=== PATIENT | female | born 1925 | race Caucasian/White ===

== ENCOUNTER 2016-08-24 15:12 | Emergency (ER) | payer MEDICARE ==
[~2016-08-24] VITALS: Ht 172.7 cm; Wt 77.3 kg
[~2016-08-24 15:12] MED LIST: ASTELIN NASAL S34 ML NS; ATIVAN 1MG T1 MG/TAB PO; CALCIMAR200 IU/ML SQ; CALCIUM CARBONA1 TA8 PO; CALCIUM CITRAT950 MG PO; CIPRO 500MG TA500 MG PO; CLOPIDOGREL; COLACE 100100 MG/CAP PO; COMBIVENT INH14.7 GM IH; COREG 6.256.25 MG/TA PO; DESYREL 100MG100 MG PO; DESYREL 50MG50 MG PO; DETROL 2MG TAB2 MG PO; DITROPAN 5MG TAB5 MG PO; EFFEXOR100 MG PO; GABAPENTIN100 M1 PO; KLOR-CON 1010 MEQ PO; LASIX 40MG TABL40 MG PO; LEVOXYL0.112 MG PO; LIDODERM 5% PATC1 EA TP; LIPITOR 10MG10 MG PO; LIPITOR20 MG PO; LOTEMAX 5 ML 5 M5 ML OU; MAGNESIUM OXIDE; MULTIPLE VITAMI1 TA1 PO; MYCOSTATIN100000 U/G TP; MYRBETR50MG PO; NEXIUM40 MG PO; NITROSTAT0.4 MG SL; NITROSTAT0.4 MG/TAB SL; NORCO 325 MG-101 TAB PO; NORCO 325 MG-51 TAB PO; PAIN RELIEF TP; PERCOCET 325 MG1 TA2 PO; PLAVIX 75MG TAB75 MG PO; POTASSIUM '99'620 MG PO; POTASSIUM GLUCONATE; PREDNISONE10 MG PO; PROZAC 20MG20 MG PO; REQUIP 1MG T1 MG/TAB PO; REQUIP2 MG PO; STOOL SOFTENER100 M2 PO; SYNTHROID0.075 MG/T PO; TRIMPEX100 MG PO; TYLENOL 325MG325 MG PO; TYLENOL 500MG500 MG PO; VALERIAN ROOT; VICODIN PO; ZANTAC 300300 MG PO; [UNRECOGNIZED DRUG - OTHER]
[2016-08-24 15:14] VITALS: TEMP 98.2
[2016-08-24] MEDS ORDERED: PYRIDIUM 100MG100 MG PO (16:55)
[2016-08-24] MEDS ORDERED: COREG 6.256.25 MG/TA PO (16:56)
[2016-08-24] MEDS ORDERED: NAPROSYN 2250 MG/TAB PO (16:59)
[2016-08-24 17:09] LABS: BASO % 0.1 % (0.0-2.0); EOS % 0.1 % (0-4.0); GRAN # 6.8 (1.4-6.5); GRAN % 83.3 % (42.2-75.2); LYMPH # 0.7 (1.2-3.4); LYMPH % 8.4 % (20.0-51.0); MEAN CELL VOLUME 96 fl (80.0-100.0); MEAN CORPUSCULAR HGB CONC 33 g/dl (33.0-37.0); MEAN PLATELET VOLUME 9.3 fl (7.4-10.4); MONO # 0.6 (0.1-0.6); MONO % 7.9 % (1.7-9.3); PLATELET COUNT 222 K/mm3 (130-400); RED BLOOD COUNT 3.33 M/mm3 (4.10-5.30); REDCELL DISTRIBUTION WIDTH-CV 12.4 % (11.5-14.5); WHITE BLOOD COUNT 8.1 K/mm3 (4.8-10.8)
[2016-08-24 17:11] LABS: HEMOGLOBIN 10.5 g/dl (12.5-16.0); MEAN CORPUSCULAR HEMOGLOBIN 32 pg (27.0-31.0)
[2016-08-24 17:20] LABS: ACETAMINOPHEN < 10 ug/mL (10-30); ADJUSTED CALCIUM 9.6 mg/dL (8.4-10.2); ALANINE AMINOTRANSFERASE 24 U/L (9-52); ALBUMIN 3.8 gm/dL (3.5-5.0); ALKALINE PHOSPHATASE 145 U/L (50-136); ANION GAP 13 mmol/L (7-16); BILIRUBIN,TOTAL 0.7 mg/dL (0.0-1.0); BLOOD UREA NITROGEN 55 mg/dL (7-17); CALCIUM 9.4 mg/dL (8.4-10.2); CARBON DIOXIDE 27 mmol/L (22-30); CHLORIDE 99 mmol/L (98-107); CREATININE, serum 1.57 mg/dL (0.52-1.25); GLUCOSE 114 mg/dL (74-106); POTASSIUM 4.2 mmol/L (3.4-5.0); SODIUM 138 mmol/L (137-145); TOTAL PROTEIN 6.6 gm/dL (6.4-8.2)
[2016-08-24 18:23] VITALS: BP 126/62; PULSE 72
== END 2016-08-24 18:28 | disposition home or self-care (01) ==
LOC: COL.ER 15:12
PROVIDERS: Emergency Medicine
DX: T50.901A Poisoning by unspecified drugs, medicaments and biological substances, accidental (unintentional), initial encounter (principal); Y92.199 Unspecified place in other specified residential institution as the place of occurrence of the external cause; I10 Essential (primary) hypertension
CPT/HCPCS: J7030

== ENCOUNTER 2016-09-24 11:49 | Emergency (ER) | payer MEDICARE ==
[~2016-09-24] VITALS: Ht 170.2 cm; Wt 64.5 kg
[~2016-09-24 11:49] MED LIST changes: +NAPROSYN 2250 MG/TAB PO; +PYRIDIUM 100MG100 MG PO
[2016-09-24 11:55] VITALS: BP 139/70; PULSE 65; TEMP 98.1
[2016-09-24] MEDS ORDERED: LIDODERM 5% PATC1 EA TP (14:07)
== END 2016-09-24 14:38 | disposition home or self-care (01) ==
LOC: COL.ER 11:49
DX: M54.32 Sciatica, left side (principal); I25.10 Atherosclerotic heart disease of native coronary artery without angina pectoris; Z95.1 Presence of aortocoronary bypass graft; Z87.891 Personal history of nicotine dependence; F32.9 Major depressive disorder, single episode, unspecified; Z79.02 Long term (current) use of antithrombotics/antiplatelets
CPT/HCPCS: J2270; J2550; J3360

== ENCOUNTER 2016-10-31 17:33 | Emergency (ER) | payer MEDICARE ==
[~2016-10-31] VITALS: Ht 172.7 cm; Wt 81.8 kg
[2016-10-31 17:33] VITALS: TEMP 97.7
[2016-10-31 18:37] VITALS: BP 181/82; PULSE 75
[2016-10-31] MEDS ORDERED: PERCOCET 325 MG1 TA2 PO (18:38)
[2016-10-31] MEDS ORDERED: ULTRAM 50MG TAB50 MG PO (18:38)
== END 2016-10-31 19:24 | disposition home or self-care (01) ==
LOC: COL.ER 17:33
DX: M25.552 Pain in left hip (principal); R10.2 Pelvic and perineal pain; E03.9 Hypothyroidism, unspecified; I25.10 Atherosclerotic heart disease of native coronary artery without angina pectoris; Z95.1 Presence of aortocoronary bypass graft
CPT/HCPCS: J1170; J1885

== ENCOUNTER 2016-11-21 11:35 | Emergency (ER) | payer MEDICARE ==
[~2016-11-21] VITALS: Ht 157.5 cm; Wt 63.6 kg
[~2016-11-21 11:35] MED LIST changes: +ULTRAM 50MG TAB50 MG PO
[2016-11-21 11:40] VITALS: TEMP 97.8
[2016-11-21 14:37] VITALS: BP 142/78; PULSE 68
== END 2016-11-21 14:38 | disposition home or self-care (01) ==
LOC: COL.ER 11:35
DX: M25.552 Pain in left hip (principal); I10 Essential (primary) hypertension; F32.9 Major depressive disorder, single episode, unspecified; M19.90 Unspecified osteoarthritis, unspecified site; Z95.1 Presence of aortocoronary bypass graft; Z90.710 Acquired absence of both cervix and uterus; Z90.49 Acquired absence of other specified parts of digestive tract; Z90.89 Acquired absence of other organs; Z96.659 Presence of unspecified artificial knee joint; Z98.890 Other specified postprocedural states
CPT/HCPCS: J1170; J1885

== ENCOUNTER 2016-12-04 22:43 | Emergency (ER) | payer MEDICARE ==
[~2016-12-04] VITALS: Ht 152.4 cm; Wt 81.8 kg
[2016-12-04 22:45] VITALS: TEMP 98
[2016-12-05 00:27] VITALS: BP 101/49; PULSE 93
== END 2016-12-05 01:14 | disposition home or self-care (01) ==
LOC: COL.ER 22:43
DX: M25.552 Pain in left hip (principal); G89.29 Other chronic pain; M54.5 Low back pain; I10 Essential (primary) hypertension; Z48.01 Encounter for change or removal of surgical wound dressing
CPT/HCPCS: J1170; J1200; J1885; J2550

== ENCOUNTER → 2016-12-14 | Outpatient (CLI) | payer MEDICARE | LOC: BHSO 12:54 | DX: F06.32 Mood disorder due to known physiological condition with major depressive-like episode (principal) | CPT/HCPCS: 90791-AI ==

== ENCOUNTER → 2017-01-16 | Outpatient (CLI) | payer MEDICARE | LOC: BHSO 11:04 | DX: F06.32 Mood disorder due to known physiological condition with major depressive-like episode (principal) ==

== ENCOUNTER → 2017-04-10 | Outpatient (CLI) | payer MEDICARE | LOC: BHSO 10:45 | DX: F41.1 Generalized anxiety disorder (principal) ==

== ENCOUNTER 2017-06-07 19:44 | Emergency (ER) | payer MEDICARE ==
[~2017-06-07] VITALS: Ht 165.1 cm; Wt 77.3 kg
[2017-06-07 19:47] VITALS: BP 132/58; TEMP 98.3
[2017-06-07 22:03] VITALS: PULSE 75
== END 2017-06-07 22:11 | disposition home or self-care (01) ==
LOC: COL.ER 19:44
DX: M46.1 Sacroiliitis, not elsewhere classified (principal)
CPT/HCPCS: J1170

== ENCOUNTER 2017-09-07 06:56 | Inpatient (IN) | payer MEDICARE ==
[~2017-09-07] VITALS: Ht 170.2 cm; Wt 68.2 kg
[~2017-09-07 06:56] MED LIST changes: +ALEVE 220MG220 MG PO; +ASTELIN NASAL S34 ML; -ASTELIN NASAL S34 ML NS; +MYRBETR25MG PO; -MYRBETR50MG PO; -NAPROSYN 2250 MG/TAB PO; +ZANTAC 150MG T150 MG PO; -ZANTAC 300300 MG PO
[2017-09-07 07:45] LABS: BASO % 0.2 % (0.0-2.0); EOS # 0.2 (0.0-0.7); EOS % 2.9 % (0-4.0); GRAN # 6.5 (1.4-6.5); GRAN % 77.1 % (42.2-75.2); LYMPH # 0.9 (1.2-3.4); LYMPH % 11.1 % (20.0-51.0); MEAN CELL VOLUME 89 fl (80.0-100.0); MEAN CORPUSCULAR HGB CONC 32 g/dl (33.0-37.0); MEAN PLATELET VOLUME 8.7 fl (7.4-10.4); MONO # 0.7 (0.1-0.6); MONO % 8.1 % (1.7-9.3); PLATELET COUNT 372 K/mm3 (130-400); RED BLOOD COUNT 2.81 M/mm3 (4.10-5.30); REDCELL DISTRIBUTION WIDTH-CV 13.1 % (11.5-14.5)
[2017-09-07 07:48] LABS: HEMATOCRIT 25.1 % (37.0-47.0); HEMOGLOBIN 8.1 g/dl (12.5-16.0); MEAN CORPUSCULAR HEMOGLOBIN 29 pg (27.0-31.0)
[2017-09-07 07:58] LABS: INR 1.2 (0.8-3.0)
[2017-09-07 08:00] LABS: ALANINE AMINOTRANSFERASE 26 U/L (9-52); ALBUMIN 3.2 gm/dL (3.5-5.0); ALKALINE PHOSPHATASE 142 U/L (50-136); ANION GAP 12 mmol/L (7-16); AST,SGOT 22 U/L (15-37); BILIRUBIN,TOTAL 0.4 mg/dL (0.0-1.0); BLOOD UREA NITROGEN 24 mg/dL (7-17); CARBON DIOXIDE 24 mmol/L (22-30); CHLORIDE 101 mmol/L (98-107); GLUCOSE 102 mg/dL (74-106); LIPASE 29 U/L (23-300); POTASSIUM 3.9 mmol/L (3.4-5.0); SODIUM 138 mmol/L (137-145); TOTAL PROTEIN 6.5 gm/dL (6.4-8.2)
[2017-09-07 08:01] LABS: PARTIAL THROMBOPLASTIN TIME 31.4 SECONDS (26.0-37.0)
[2017-09-07 08:12] LABS: TROPONIN-I < 0.012 ng/mL (0.000-0.034)
[2017-09-07] MEDS ORDERED: NORCO 325 MG-51 TAB PO (09:53)
[2017-09-07 10:30] LABS: COLLECTION METHOD CLEAN CATCH
[2017-09-07] MEDS ORDERED: NORCO 325 MG-101 TAB PO (10:38)
[2017-09-07 10:41] LABS: PH 6 (5-8); SQUAMOUS EPITHELIAL 0-2 /hpf; URINE APPEARANCE Cloudy; URINE BACTERIA Rare /hpf; URINE BILIRUBIN Negative (NEGATIVE); URINE BLOOD 1+ (NEGATIVE); URINE COLOR Yellow; URINE GLUCOSE Negative (NEGATIVE); URINE KETONE Trace (NEGATIVE); URINE LEUKOCYTE ESTERASE 3+ (NEGATIVE); URINE NITRATE Negative (NEGATIVE); URINE PROTEIN(semi-quant) Negative (NEGATIVE); URINE UROBILINOGEN Negative (NEGATIVE)
[2017-09-07] MEDS ORDERED: CYMBALTA 30MG30 MG PO (10:44)
[2017-09-07] MEDS ORDERED: CYMBALTA 60MG60 MG PO (10:44)
[2017-09-07] MEDS ORDERED: FLONASEALLERGY NS (10:50)
[2017-09-07] MEDS ORDERED: OXY IR5 MG PO (10:51)
[2017-09-07] MEDS ORDERED: ESTRACE0.1 MG/GM VG (10:55)
[2017-09-07] MEDS ORDERED: TYLENOL 500MG500 MG PO (11:02)
[2017-09-07] MEDS ORDERED: PROTONIX 40MG T40 MG PO (12:19)
[2017-09-07 12:45] VITALS: BP 153/66; PULSE 81
[2017-09-07 13:00] VITALS: BP 155/56; PULSE 83
[2017-09-07 15:13] LABS: HEMATOCRIT 26.6 % (37.0-47.0); HEMOGLOBIN 8.5 g/dl (12.5-16.0)
[2017-09-07 19:37] LABS: HEMATOCRIT 25.2 % (37.0-47.0)
[2017-09-07 20:00] VITALS: BP 132/71; PULSE 90; TEMP 97.7
[2017-09-08] VITALS (7 sets, daily range): BP systolic 123–176; BP diastolic 54–73; PULSE 75–93; TEMP 97.5–99.2
[2017-09-08 00:17] LABS: HEMATOCRIT 27.4 % (37.0-47.0); HEMOGLOBIN 8.7 g/dl (12.5-16.0)
[2017-09-08 06:36] LABS: BASO % 0.4 % (0.0-2.0); EOS # 0.3 (0.0-0.7); EOS % 3.9 % (0-4.0); GRAN # 5.2 (1.4-6.5); LYMPH # 1.1 (1.2-3.4); LYMPH % 14.2 % (20.0-51.0); MEAN CELL VOLUME 92 fl (80.0-100.0); MEAN CORPUSCULAR HGB CONC 31 g/dl (33.0-37.0); MEAN PLATELET VOLUME 8.9 fl (7.4-10.4); MONO # 0.8 (0.1-0.6); MONO % 10.6 % (1.7-9.3); PLATELET COUNT 369 K/mm3 (130-400); RED BLOOD COUNT 2.67 M/mm3 (4.10-5.30); REDCELL DISTRIBUTION WIDTH-CV 13.2 % (11.5-14.5)
[2017-09-08 06:38] LABS: HEMATOCRIT 24.5 % (37.0-47.0); HEMOGLOBIN 7.6 g/dl (12.5-16.0); MEAN CORPUSCULAR HEMOGLOBIN 28 pg (27.0-31.0)
[2017-09-08 06:53] LABS: ALBUMIN 3.4 gm/dL (3.5-5.0); BILIRUBIN,TOTAL 0.5 mg/dL (0.0-1.0); CALCIUM 9.2 mg/dL (8.4-10.2); CREATININE, serum 0.75 mg/dL (0.52-1.25); POTASSIUM 3.8 mmol/L (3.4-5.0); TOTAL PROTEIN 6.7 gm/dL (6.4-8.2)
[2017-09-08 11:05] LABS: HEMATOCRIT 23.7 % (37.0-47.0); HEMOGLOBIN 7.5 g/dl (12.5-16.0)
[2017-09-08 15:44] LABS: HEMATOCRIT 22.7 % (37.0-47.0); HEMOGLOBIN 7.1 g/dl (12.5-16.0)
[2017-09-08 18:30] LABS: HEMATOCRIT 24.5 % (37.0-47.0); HEMOGLOBIN 7.8 g/dl (12.5-16.0)
[2017-09-09 00:06] LABS: HEMATOCRIT 24.5 % (37.0-47.0); HEMOGLOBIN 7.7 g/dl (12.5-16.0)
[2017-09-09 03:44] VITALS: BP 165/81; PULSE 88; TEMP 99
[2017-09-09 06:39] LABS: BASO % 0.2 % (0.0-2.0); EOS # 0.3 (0.0-0.7); EOS % 5.1 % (0-4.0); GRAN # 4.7 (1.4-6.5); GRAN % 72.8 % (42.2-75.2); LYMPH # 0.9 (1.2-3.4); LYMPH % 13.5 % (20.0-51.0); MEAN CELL VOLUME 91 fl (80.0-100.0); MEAN CORPUSCULAR HGB CONC 31 g/dl (33.0-37.0); MEAN PLATELET VOLUME 8.7 fl (7.4-10.4); MONO # 0.5 (0.1-0.6); MONO % 7.8 % (1.7-9.3); PLATELET COUNT 388 K/mm3 (130-400); RED BLOOD COUNT 2.81 M/mm3 (4.10-5.30); REDCELL DISTRIBUTION WIDTH-CV 13.2 % (11.5-14.5)
[2017-09-09 06:47] LABS: HEMATOCRIT 25.5 % (37.0-47.0); HEMOGLOBIN 7.9 g/dl (12.5-16.0); MEAN CORPUSCULAR HEMOGLOBIN 28 pg (27.0-31.0)
[2017-09-09 06:48] LABS: BILIRUBIN,TOTAL 0.3 mg/dL (0.0-1.0); CALCIUM 9.2 mg/dL (8.4-10.2); CREATININE, serum 0.72 mg/dL (0.52-1.25); POTASSIUM 3.9 mmol/L (3.4-5.0); TOTAL PROTEIN 6.2 gm/dL (6.4-8.2)
[2017-09-09 07:52] VITALS: BP 176/72; PULSE 83; TEMP 98.3
[2017-09-09 12:17] VITALS: BP 131/44; PULSE 85; TEMP 98.5
[2017-09-09 12:22] LABS: RETIC # 0.08 M/mm3 (0.02-0.16); RETIC % 2.8 % (0.5-3.52)
[2017-09-09 12:27] LABS: IRON,SERUM 14 ug/dL (35-150)
[2017-09-09 12:38] LABS: TOTAL IRON BINDING CAPACITY 333 ug/dL (265-497)
[2017-09-09 13:04] LABS: FERRITIN 24 ng/mL (11-264)
[2017-09-09 16:50] VITALS: BP 132/41; PULSE 82; TEMP 98.3
[2017-09-09 20:55] VITALS: BP 150/61; PULSE 82; TEMP 98.6
[2017-09-10 00:25] VITALS: BP 139/49; PULSE 84; TEMP 98.1
[2017-09-10 04:45] VITALS: BP 188/73; PULSE 78; TEMP 97.9
[2017-09-10 05:25] VITALS: BP 152/62; PULSE 71
[2017-09-10 07:03] LABS: BASO % 0.3 % (0.0-2.0); EOS # 0.3 (0.0-0.7); EOS % 5.8 % (0-4.0); GRAN # 3.8 (1.4-6.5); GRAN % 65.1 % (42.2-75.2); LYMPH # 1.2 (1.2-3.4); LYMPH % 20.4 % (20.0-51.0); MEAN CELL VOLUME 91 fl (80.0-100.0); MEAN CORPUSCULAR HGB CONC 31 g/dl (33.0-37.0); MEAN PLATELET VOLUME 8.9 fl (7.4-10.4); MONO # 0.5 (0.1-0.6); MONO % 8.1 % (1.7-9.3); PLATELET COUNT 409 K/mm3 (130-400); RED BLOOD COUNT 2.78 M/mm3 (4.10-5.30); REDCELL DISTRIBUTION WIDTH-CV 13.1 % (11.5-14.5)
[2017-09-10 07:07] LABS: CALCIUM 8.9 mg/dL (8.4-10.2); CREATININE, serum 0.7 mg/dL (0.52-1.25); POTASSIUM 3.6 mmol/L (3.4-5.0)
[2017-09-10 07:11] LABS: HEMATOCRIT 25.4 % (37.0-47.0); HEMOGLOBIN 7.8 g/dl (12.5-16.0); MEAN CORPUSCULAR HEMOGLOBIN 28 pg (27.0-31.0)
[2017-09-10 08:28] VITALS: BP 132/46; PULSE 82; TEMP 97.8
[2017-09-10] MEDS ORDERED: MONODOX100 PO (11:43)
[2017-09-10] MEDS ORDERED: FERROUS GL325 MG/TAB PO (11:45)
[2017-09-10] MEDS ORDERED: NORCO 325 MG-101 TAB PO (11:46)
[2017-09-10] MEDS ORDERED: OXY IR5 MG PO (11:46)
[2017-09-10] MEDS ORDERED: LEADER CLE17 GM/Dose PO (11:47)
[2017-09-10 12:30] VITALS: BP 137/66; PULSE 67; TEMP 98.5
[2017-09-10 14:00] VITALS: BP 137/66; PULSE 67; TEMP 98.5
== END 2017-09-10 15:44 | disposition home health service (06) | DRG 378 ==
LOC: COL.ER 06:56 → MEDICAL 10:05
PROVIDERS: Emergency Medicine; Internal Medicine; Internal Medicine Gastroenterology; Physician Assistant
PROC: 0DB68ZX Excision of Stomach, Via Natural or Artificial Opening Endoscopic, Diagnostic (ICD-10-PCS; principal; 2017-09-07 12:00)
DX: K26.4 Chronic or unspecified duodenal ulcer with hemorrhage (principal); D62 Acute posthemorrhagic anemia; N39.0 Urinary tract infection, site not specified; K25.4 Chronic or unspecified gastric ulcer with hemorrhage; K21.0 Gastro-esophageal reflux disease with esophagitis; I25.10 Atherosclerotic heart disease of native coronary artery without angina pectoris; Z95.1 Presence of aortocoronary bypass graft; B96.20 Unspecified Escherichia coli [E. coli] as the cause of diseases classified elsewhere; Z87.891 Personal history of nicotine dependence
CPT/HCPCS: 99223-AI; 99232-AI; 99233-AI; 99239; J1170; J2270; J2704; J7030; Q9967

== ENCOUNTER → 2017-10-29 | Outpatient (CLI) | payer MEDICARE ==
[~2017-10-29] MED LIST changes: +CYMBALTA 30MG30 MG PO; +CYMBALTA 60MG60 MG PO; +ESTRACE0.1 MG/GM VG; +FERROUS GL325 MG/TAB PO; +FLONASEALLERGY NS; +LEADER CLE17 GM/Dose PO; +MONODOX100 PO; +OXY IR5 MG PO; +PROTONIX 40MG T40 MG PO
== END ==
LOC: BHSO 11:20
DX: F06.32 Mood disorder due to known physiological condition with major depressive-like episode (principal)
CPT/HCPCS: G0463

== ENCOUNTER 2017-11-03 10:22 | Emergency (ER) | payer MEDICARE ==
[~2017-11-03] VITALS: Ht 162.6 cm; Wt 68.2 kg
[2017-11-03 10:33] VITALS: TEMP 97.6
[2017-11-03 11:24] LABS: BASO % 0.5 % (0.0-2.0); EOS # 0.2 (0.0-0.7); EOS % 3.3 % (0-4.0); GRAN # 4.8 (1.4-6.5); GRAN % 71.5 % (42.2-75.2); HEMOGLOBIN 11.7 g/dl (12.5-16.0); LYMPH # 1.2 (1.2-3.4); LYMPH % 17.6 % (20.0-51.0); MEAN CELL VOLUME 94 fl (80.0-100.0); MEAN CORPUSCULAR HEMOGLOBIN 30 pg (27.0-31.0); MEAN CORPUSCULAR HGB CONC 32 g/dl (33.0-37.0); MEAN PLATELET VOLUME 8.8 fl (7.4-10.4); MONO # 0.5 (0.1-0.6); MONO % 6.8 % (1.7-9.3); PLATELET COUNT 241 K/mm3 (130-400); RED BLOOD COUNT 3.88 M/mm3 (4.10-5.30); REDCELL DISTRIBUTION WIDTH-CV 14.8 % (11.5-14.5)
[2017-11-03 11:29] LABS: HEMATOCRIT 36.4 % (37.0-47.0)
[2017-11-03 11:39] LABS: ALANINE AMINOTRANSFERASE 21 U/L (9-52); ALBUMIN 3.5 gm/dL (3.5-5.0); ALKALINE PHOSPHATASE 132 U/L (50-136); ANION GAP 10 mmol/L (7-16); AST,SGOT 25 U/L (15-37); BILIRUBIN,TOTAL 0.5 mg/dL (0.0-1.0); BLOOD UREA NITROGEN 21 mg/dL (7-17); CALCIUM 9.8 mg/dL (8.4-10.2); CARBON DIOXIDE 31 mmol/L (22-30); CHLORIDE 102 mmol/L (98-107); CREATINE KINASE 34 U/L (30-135); CREATININE, serum 0.94 mg/dL (0.52-1.25); GLUCOSE 102 mg/dL (74-106); POTASSIUM 4.6 mmol/L (3.4-5.0); SODIUM 143 mmol/L (137-145); TOTAL PROTEIN 6.7 gm/dL (6.4-8.2)
[2017-11-03 11:54] LABS: ERYTHROCYTE SEDIMENTATION RATE 18 mm/hr (0-30)
[2017-11-03 12:00] LABS: TROPONIN-I < 0.012 ng/mL (0.000-0.034)
[2017-11-03 12:18] LABS: COLLECTION METHOD CLEAN CATCH
[2017-11-03 12:25] LABS: PH 7 (5-8); SQUAMOUS EPITHELIAL None Seen /hpf; URINE APPEARANCE Clear; URINE BACTERIA None Seen /hpf; URINE BILIRUBIN Negative (NEGATIVE); URINE BLOOD Negative (NEGATIVE); URINE COLOR Straw; URINE GLUCOSE Negative (NEGATIVE); URINE KETONE Negative (NEGATIVE); URINE LEUKOCYTE ESTERASE Negative (NEGATIVE); URINE NITRATE Negative (NEGATIVE); URINE PROTEIN(semi-quant) Negative (NEGATIVE); URINE RBC 0-2 /hpf; URINE UROBILINOGEN Negative (NEGATIVE)
[2017-11-03] MEDS ORDERED: PREDNISONE20 MG PO (13:12)
[2017-11-03 13:38] VITALS: BP 107/51; PULSE 76
== END 2017-11-03 13:40 | disposition home or self-care (01) ==
LOC: COL.ER 10:22
PROVIDERS: Emergency Medicine
DX: G89.29 Other chronic pain (principal); M25.572 Pain in left ankle and joints of left foot; Z87.891 Personal history of nicotine dependence; Z79.51 Long term (current) use of inhaled steroids
CPT/HCPCS: J2270; J2405; J7030